=== PATIENT | female | born 1940 | race Caucasian/White ===

== ENCOUNTER 2019-11-25 12:36 | Outpatient (CLI) | payer MEDICARE, OTHER, SELFPAY ==
--- NOTE | 2019-11-25 12:48 | MR_ITS ---
WS: [id number] MRI/MRCP OF THE ABDOMEN WITHOUT GADOLINIUM ENHANCEMENT TECHNIQUE: Thin and thick slab MRCP, Axial T2, Coronal MRCP, Axial Dual Echo, and Axial 2-D Fiesta imaging was obtained. Coronal 2-D Fiesta imaging. CLINICAL INFORMATION: EXOCRINE PANCREATIC INSUFFICENCY COMPARISON: None. FINDINGS: Images are significantly degraded by motion artifact. This limits examination of the pancreas. Consid er further evaluation with CT abdomen pelvis for better anatomic detail. No comparisons. Liver is normal in appearance. Normal portal vein and splenic vein. No intrahepatic biliary ductal di latation. Normal visualized gallbladder. No hydronephrosis in either kidney. Normal spleen. Normal ca liber abdominal aorta. Pancreatic body and tail appear grossly normal. Pancreatic head is not well visualized. Normal intrah epatic ducts. No visualized pancreatic ductal dilatation MR/MR MRCP 37191 Impression: 1. Images significantly degraded by patient motion. Breath-hold sequences are degraded. Consider further evaluation with CT abdomen pelvis for better detail. Pancreas is not well evaluated. 2. No intrahepatic biliary ductal dilatation. 3. Pancreatic head is not visualized. Pancreatic body and tail appear grossly normal. No definite pancreatic mass or lesion. 4. Liver is normal in appearance. 5. No hydronephrosis in either kidney. 6. Normal spleen.
== END 2019-11-25 12:37 | disposition home or self-care (01) ==
LOC: RADSHAW 12:40
PROVIDERS: Family Provider Family Medicine; PCP Family Medicine; Visit Provider Internal Medicine Gastroenterology
DX: K86.81 Exocrine pancreatic insufficiency (principal)
CPT/HCPCS: 74181

== ENCOUNTER 2024-05-25 13:28 | Oncology outpatient (recurring) (ONCR) | payer MEDICARE, OTHER, SELFPAY ==
--- NOTE | 2024-05-26 10:13 | N.ONRAD NP_ITS ---
Radiation Oncology New Patient Visit Patient: Paulina Patricia MR#: [id number] : 1940> Age: 83> Sex: Female> Dictated by: Dr. Angela Kendall Date of Service: 05/25/2024 Referring Physician(s) : Dr. Zuñiga Diagnosis: Stage IV pancreatic cancer Radiotherapy to date: Summary > No prior radiation therapy. Chief Complaint / History of Present Illness: Patient is an 83-year-old lady who was initially diagnosed in January 2024 when she presented with worsening abdominal pain. Her scans showed a 3.6 cm mass in the uncinate process of the pancreas at that time. She also was noted to have extensive pleural spread. She had a biopsy towards the end of January. She received a trial of gemcitabine which was only partially responsive with some disease responding and other disease progressing. In April she was admitted with pneumonia and hypercalcemia. At that point she was placed on palliative care at [facility]. She at that point also transferred her care here as has become too difficult for her to get to [place]. She continues to have weight loss and increasing pain. She has not had any imaging for a month. She is seen today in consultation to discuss palliative radiation to try and help with her pain. Current Medications: acetaminophen 500 mg PO Q6H PRN amlodipine 5 mg PO DAILY epojslt-bqvejkvfaryyr-sofvvypd 250-250-65 mg (Excedrin Extra Strength) 1 tab PO Q6H PRN budesonide ER 3 mg PO DAILY dexamethasone 2 mg PO DAILY losartan 50 mg PO BID morphine 15 mg PO Q4H PRN morphine ER 15 mg PO Q8H ondansetron 8 mg PO Q8H polyethylene glycol 3350 4 grams PO DAILY prochlorperazine maleate 10 mg PO Q6H PRN sennosides (senna) 8.6 mg PO BID Allergies: No Known Allergies Allergy (Verified 05/25/24 13:54) Medical History: No pertinent past medical history, colitis Surgical History: Umbilical hernia repair, bilateral cataract surgery Family History: Father with COPD mother with polio Social History: Currently lives in [place] with her . She quit smoking in 1962. Drinks 2-3 times a week. Smoking and tobacco/nicotine status: former use of tobacco/nicotine (quit 1962) Quit status (tobacco/nicotine): has quit using Year quit tobacco: 1962 Former quit date comment: 2 years total use Second hand smoke exposure: Yes Current Complaints / Review of Systems: . Vital Signs: Performed on 05/25/2024 4:05 PM BMI - 16.075 kg/m2 (low), Height - 65 in, Weight - 96.6 lbs, Temperature - 97.7 f, Pulse - 91 /min, Respiration - 17 /min, O2 Sat - 94 % (low), Pain - 4, Fatigue - 0 and BP - 156/ 73 mm(hg)(high/). Physical Exam: General Patient is a pale ill-appearing cachectic 83-year-old lady who actually looks about 6 months . HEENT: Normocephalic atraumatic. Pupils are equal, sclera clear, extraocular muscles intact Pulmonary: Respiratory rate is regular nonlabored Cardiovascular: Regular rate and rhythm Abdomen: Her abdomen is quite tense. The area of the umbilicus is erythematous from the lymph node just underneath that has recently enlarged. On palpation it is tender throughout her abdomen. It really feels like her whole abdomen may just be full of cancer at this point. Extremities: Without clubbing cyanosis or edema Neurological: Alert and orient x 3. Gait and speech within normal limits Psych: Affect is appropriate for current situation. She expresses her extreme fatigue and how she is really considering not doing any additional therapy. Performance Status: Eastern Cooperative Oncology Group Performance Status (ECOG): 1 Pathology: Pancreatic cancer Impression: Progressive pancreatic cancer Plan: I reviewed with the patient and her her current symptoms. We talked about how she really had not had any imaging lately so it would be difficult to determine whether palliative radiation would be beneficial in terms of managing her pain. We talked about typically we would do anywhere from a week to 2 weeks of treatment. [place] do 3 treatments a week to try and help with him not having to come every single day. Reviewed the risks and side effects of the different areas in the abdomen. After some discussion her really wanted her to consider treatment and wanted new imaging to see if we would be able to help. We talked about going ahead and doing a simulation today to see what her disease extent is and then we can go from there. They have already contacted hospice and I encouraged him to keep those appointment. I will call them first thing in the morning with the results of the simulation so that we can provide additional information on whether she would wish to proceed with treatment or not. Her and her agreed to the above plan. Addendum: CT scan revealed extensive disease throughout the abdomen with large masses and peritoneal seeding and adenopathy. I spoke with her on the phone as she was sleeping. I reviewed with him the findings on the simulation. We talked about how at this point in time with the progression of her disease and where she is in general radiation would not be of benefit. I encouraged them to continue to work with hospice and get established there. Her disease had just progressed to the point where we could no longer be of help. Signed by: 05/26/2024 10:11:38 AM <<Signature on File>> Time spent with patient:60 CPT Code: CPT Code:
== END 2024-06-08 23:59 | disposition home or self-care (01) ==
PROVIDERS: Family Provider Family Medicine; PCP Family Medicine; Visit Provider Internal Medicine Medical Oncology
DX: Z51.0 Encounter for antineoplastic radiation therapy (principal); C25.0 Malignant neoplasm of head of pancreas; C78.6 Secondary malignant neoplasm of retroperitoneum and peritoneum; Z87.891 Personal history of nicotine dependence; Z79.891 Long term (current) use of opiate analgesic; K59.03 Drug induced constipation
CPT/HCPCS: 77290; 77334; 96523; 99205